=== PATIENT | female | born 1985 ===

== ENCOUNTER 2018-05-15 22:58 | Observation (INO) | payer OTHER ==
--- NOTE | 2018-05-15 23:48 | ED PDOC ---
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 Patient states when headache presents her left side of face, left arm, and left leg become "tingly", and notes her left palm starts to sweat. Patient states she has been taking Excedrin without improvement of headache. Patient notes intermittent dizziness. Patient reports syncopal episode prior to arrival tonight, after onset of headache. Denies fever, nausea/vomiting, photophobia, vision changes, neck pain, chest pain, shortness of breath, palpitations. NIHSS Stroke Scale - Date/Time Evaluation Performed Date Performed: 05/15/18 Time Performed: 23:25 - How Severe is the Stroke Level of Consciousness: 0=Alert LOC to Questions: 0=Both comments correct LOC to commands: 0=Obeys both correctly Best Gaze: 0=Normal Visual: 0=No visual loss Facial: 0=Normal Motor Arm - Left: 2=Falls before 10 sec Motor Arm - Right: 0=No drift Motor Leg - Left: 1=Drift before 5 sec Motor Leg - Right: 0=No drift Limb Ataxia: 0=Absent Sensory: 1=Mild to moderate loss Best Language: 0=No aphasia Dysarthia: 0=Normal articulation Extinction & Inattention (Neglect): 0=Normal, no object Score: 4 Past Medical History Reviewed: Historical Data, Nursing Documentation, Vital Signs Vital Signs: Last Vital Signs Temp 98.7 F 05/15/18 23:04 Pulse 71 05/15/18 23:04 Resp 16 05/15/18 23:04 BP 130/81 05/15/18 23:04 Pulse Ox 100 05/15/18 23:04 - Medical History PMH: No Chronic Diseases - Surgical History Other surgeries: tubal ligation - Family History Family History: States: No Known Family Hx - Social History Current smoker - smoking cessation education provided: No Alcohol: None Drugs: Denies - Home Medications Home Medications: Ambulatory Orders Medication Instructions Recorded No Known Home Med 05/16/18 - Allergies Allergies/Adverse Reactions: Allergies Allergy/AdvReac Type Severity Reaction Status Date / Time No Known Allergies Allergy Verified 05/15/18 23:04 Review of Systems ROS Statement: Except As Marked, All Systems Reviewed And Found Negative Neurological: Positive for: Numbness, Headache Physical Exam - Reviewed Nursing Documentation Reviewed: Yes Vital Signs Reviewed: Yes - Physical Exam Appears: Positive for: Well, Non-toxic, No Acute Distress Head Exam: Positive for: ATRAUMATIC, NORMAL INSPECTION, NORMOCEPHALIC Skin: Positive for: Normal Color Eye Exam: Positive for: Normal appearance ENT: Positive for: Normal ENT Inspection Cardiovascular/Chest: Positive for: Regular Rate, Rhythm Respiratory: Positive for: Normal Breath Sounds Gastrointestinal/Abdominal: Positive for: Normal Exam Back: Positive for: Normal Inspection Extremity: Positive for: Normal ROM Neurologic/Psych: Positive for: Alert, Oriented (x3), Motor/Sensory Deficits (decreased sensation left compared to right; 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 4/5 strength LUE, LLE). Negative for: Facial Droop - Laboratory Results Result Diagrams: 05/16/18 00:23 05/16/18 00:23 - ECG ECG: Positive for: Viewed By Me (reviewed by ED attending) ECG Rhythm: Positive for: Sinus Rhythm O2 Sat by Pulse Oximetry: 100 - Progress ED Course And Treament: -cbc -cmp -upreg -udip -CT head CT SCAN OF THE BRAIN WITHOUT IV CONTRAST CLINICAL INDICATION: Headache, left-sided numbness. TECHNIQUE: Axial and reformatted sagittal and coronal images of the brain obtained without IV contrast administration. Normal size of the ventricles and extra-axial spaces for the patient's age. Normal white matter tracts of the supratentorial brain. Normal basal ganglia and thalami. Normal brainstem. Normal cerebellum. There is no demonstrated extra-axial, intraparenchymal, or intraventricular hemorrhage. There are no findings of an acute ischemic infarction. Normal calvarium. There is no demonstrated fracture. Normal soft tissue structures. Normal visualized paranasal sinuses. IMPRESSION: Normal unenhanced CT scan of the brain. Case discussed with Dr. Gonzalez, Neurologist on-call, who feels presentation similar to that of an atypical migraine; recommends treatment for migraine symptoms and place in observation for MRI in am Case discussed with Dr. Rios, Hospitalist on-call, for placement in observation IV mag, IV solumedrol, IV benadryl ordered for headache with improvement of symptoms Disposition - Clinical Impression Clinical Impression: Atypical migraine - Disposition Disposition Time: 01:00 Condition: FAIR
[2018-05-16 00:52] LABS: BASO % 0.6 % (0.0-2.0); EOS # 0.2 K/uL (0.0-0.7); EOS % 2.3 % (0.0-4.0); HEMOGLOBIN 13.1 g/dL (12.0-16.0); LYMPH # 4.1 K/uL (1.0-4.3); LYMPH % 45.5 % (20.0-40.0); MEAN CELL VOLUME 89.7 fl (81.0-99.0); MEAN CORPUSCULAR HEMOGLOBIN 30.3 pg (27.0-31.0); MEAN CORPUSCULAR HGB CONC 33.8 g/dL (33.0-37.0); MEAN PLATELET VOLUME 8.6 fl (7.2-11.7); MONO # 0.7 K/uL (0.0-0.8); MONO % 8.2 % (0.0-10.0); NEUT # 3.9 K/uL (1.8-7.0); NEUT % 43.4 % (50.0-75.0); NRBC % 0.2 % (0.0-0.0); RBC 4.31 Mil/uL (3.80-5.20); RED CELL DISTRIBUTION WIDTH 13.1 % (11.5-14.5)
[2018-05-16] MEDS ORDERED: DiphenhydrAMINE 50 mg/ml Inj IV ONE (00:56)
[2018-05-16] MEDS ORDERED: Sodium Chloride 0.9% 1,000 ML IV STA (00:56)
[2018-05-16] MEDS ORDERED: Magnesium Sulfate 2 gm/50 ml 2 GM/50 ML BAG IVPB STA (00:56)
[2018-05-16 01:09] LABS: ALB/GLOB RATIO 1.1 (1.0-2.1); ALBUMIN 4.1 g/dL (3.5-5.0); ALT/SGPT 45 U/L (9-52); AST/SGOT 46 U/L (14-36); BLOOD UREA NITROGEN 12 mg/dl (7-17); GFR NON-AFRICAN AMERICAN > 60
[2018-05-16] MEDS ORDERED: Magnesium Sulfate 2 gm/50 ml 2 GM/50 ML BAG ONE (01:14)
[2018-05-16] MEDS ORDERED: DiphenhydrAMINE 50 mg/ml Inj ONE (01:14)
--- NOTE | 2018-05-16 06:40 | CP.PCM.HP ---
<Nestor Marc - Last Filed: 05/16/18 06:55> History of Present Illness - History of Present Illness History of Present Illness: 32 yo F with pmhx of migraine headaches presents with migraine Pt stated that 3 days prior, she experienced severe migraine on the L side with L sided tingling of her face, arm, leg. She took Excedrin, which didnt help her pain. She reports that she has experienced headaches or migraines every other week for at least 2 years. Prior to arrival, pt had an episode of weakness/presyncope where she felt weak. PMD: none surg: none soc: denies smoking, alcohol, illicit drugs FAm: mom had cva with L sided weakness, cad, dm, htn rx: excedrin, NKDA Present on Admission - Present on Admission Any Indicators Present on Admission: Yes History of DVT/PE: No History of Uncontrolled Diabetes: No Urinary Catheter: No Review of Systems - Constitutional Constitutional: Weakness - Cardiovascular Cardiovascular: absent: Chest Pain, Chest Pain at Rest - Respiratory Respiratory: absent: Cough, Dyspnea - Gastrointestinal Gastrointestinal: absent: Abdominal Pain - Neurological Neurological: Tingling Past Patient History - Past Medical History & Family History Past Medical History?: Yes - Past Social History Smoking Status: Never Smoked Alcohol: None Drugs: Denies Home Situation {Lives}: With Family - NEUROLOGICAL Hx Migraine: Yes - PSYCHIATRIC Hx Substance Use: No - SURGICAL HISTORY Hx Surgeries: Yes Hx Tubal Ligation: Yes - ANESTHESIA Hx Anesthesia: Yes Meds Allergies/Adverse Reactions: Allergies Allergy/AdvReac Type Severity Reaction Status Date / Time No Known Allergies Allergy Verified 05/15/18 23:04 Physical Exam - Constitutional Appears: In Acute Distress - Eye Exam Eye Exam: EOMI - Respiratory Exam Respiratory Exam: Clear to Auscultation Bilateral, NORMAL BREATHING PATTERN. absent: Wheezes - Cardiovascular Exam Cardiovascular Exam: REGULAR RHYTHM, +S1, +S2 - GI/Abdominal Exam GI & Abdominal Exam: Normal Bowel Sounds, Soft. absent: Tenderness - Neurological Exam Neurological exam: Alert, CN II-XII Intact, Oriented x3 - Psychiatric Exam Psychiatric exam: Normal Affect, Normal Mood Results - Vital Signs Recent Vital Signs: Last Vital Signs Temp 98.7 F 05/15/18 23:04 Pulse 71 05/15/18 23:04 Resp 16 05/15/18 23:04 BP 130/81 05/15/18 23:04 Pulse Ox 100 05/16/18 04:44 - Labs Result Diagrams: 05/16/18 00:23 05/16/18 00:23 Labs: Laboratory Results - last 24 hr 05/15/18 05/16/18 05/16/18 23:58 00:23 00:23 WBC 9.0 RBC 4.31 Hgb 13.1 Hct 38.6 MCV 89.7 MCH 30.3 MCHC 33.8 RDW 13.1 Plt Count 248 MPV 8.6 Neut % (Auto) 43.4 L Lymph % (Auto) 45.5 H [place] % (Auto) 8.2 Eos % (Auto) 2.3 Baso % (Auto) 0.6 Neut # (Auto) 3.9 Lymph # (Auto) 4.1 [place] # (Auto) 0.7 Eos # (Auto) 0.2 Baso # (Auto) 0.0 Sodium 140 Potassium 3.5 L Chloride 104 Carbon Dioxide 26 Anion Gap 14 BUN 12 Creatinine 0.7 Est GFR ( Amer) > 60 Est GFR (Non-Af Amer) > 60 POC Glucose (mg/dL) 121 H Random Glucose 113 H Calcium 9.0 Total Bilirubin 0.4 AST 46 H ALT 45 Alkaline Phosphatase 64 Total Protein 7.8 Albumin 4.1 Globulin 3.7 Albumin/Globulin Ratio 1.1 Assessment & Plan - Assessment and Plan (Free Text) Assessment: 32 yo F with pmhx of migraine headaches presents with migraine Plan: Atypical migraine CT head reviewed Neurolgy Dr. Gonzalez: recommends MRI in AM s/p: benadryl, mg sulfate, methylprednisone neurochecks f/u MRI Dizziness Meclezine DVT prophylaxis SCD Case dw Dr. Gabriel Marc MD [email or web address] <Estelita Rios - Last Filed: 05/16/18 07:01> Results - Vital Signs Recent Vital Signs: Last Vital Signs Temp 98.1 F 05/16/18 06:43 Pulse 66 05/16/18 06:43 Resp 18 05/16/18 06:43 BP 114/70 05/16/18 06:43 Pulse Ox 98 05/16/18 06:43 - Labs Result Diagrams: 05/16/18 00:23 05/16/18 00:23 Labs: Laboratory Results - last 24 hr 05/15/18 05/16/1819 23:58 00:23 00:23 WBC 9.0 RBC 4.31 Hgb 13.1 Hct 38.6 MCV 89.7 MCH 30.3 MCHC 33.8 RDW 13.1 Plt Count 248 MPV 8.6 Neut % (Auto) 43.4 L Lymph % (Auto) 45.5 H [place] % (Auto) 8.2 Eos % (Auto) 2.3 Baso % (Auto) 0.6 Neut # (Auto) 3.9 Lymph # (Auto) 4.1 [place] # (Auto) 0.7 Eos # (Auto) 0.2 Baso # (Auto) 0.0 Sodium 140 Potassium 3.5 L Chloride 104 Carbon Dioxide 26 Anion Gap 14 BUN 12 Creatinine 0.7 Est GFR ( Amer) > 60 Est GFR (Non-Af Amer) > 60 POC Glucose (mg/dL) 121 H Random Glucose 113 H Calcium 9.0 Total Bilirubin 0.4 AST 46 H ALT 45 Alkaline Phosphatase 64 Total Protein 7.8 Albumin 4.1 Globulin 3.7 Albumin/Globulin Ratio 1.1 Attending/Attestation - Attestation I have personally seen and examined this patient.: Yes I have fully participated in the care of the patient.: Yes I have reviewed all pertinent clinical information: Yes Notes (Text): 05/16/18 06:59 32 year old female known history of migraines presents with a 3 day history of left sided headache worsening today associated with 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 She received migraine cocktail, Neuro consulted in ED, likely complex migraines, and would like MRI in AM. HD stable, pain is currently controlled.
[2018-05-16] MEDS ORDERED: Apap-Butalbital-Caffeine 325-50-40mg Tab PO PRN (06:59)
[2018-05-16] MEDS ORDERED: Apap-Butalbital-Caffeine 325-50-40mg Tab ONE (07:06)
[2018-05-16] MEDS ORDERED: Gadodiamide 287 MG/ML VIAL (15ML) IV ONE (08:41)
--- NOTE | 2018-05-16 09:56 | CT ---
Date of service: 05/16/2018 PROCEDURE: CT HEAD WITHOUT CONTRAST. HISTORY: headache, left sided numbness COMPARISON: None available. TECHNIQUE: Axial computed tomography images were obtained through the head/brain without intravenous contrast. Radiation dose: Total exam DLP = 787.14 mGy-cm. This CT exam was performed using one or more of the following dose reduction techniques: Automated exposure control, adjustment of the mA and/or kV according to patient size, and/or use of iterative reconstruction technique. FINDINGS: HEMORRHAGE: No intracranial hemorrhage. BRAIN: Normal jacobo-white matter differentiation and density are appreciated throughout the cerebrum and cerebellum with the brainstem appearing unremarkable as well. There is no mass effect. There is no suspicious extra-axial fluid collection and the midline brain anatomy appears diffusely unremarkable. VENTRICLES: Unremarkable. No hydrocephalus. CALVARIUM: Unremarkable. PARANASAL SINUSES: Unremarkable as visualized. No significant inflammatory changes. MASTOID AIR CELLS: Unremarkable as visualized. No inflammatory changes. OTHER FINDINGS: None. IMPRESSION: Unremarkable unenhanced CT of the Head. Concordant preliminary report from Robin, 05/16/2018 12:44 a.m..
--- NOTE | 2018-05-16 14:25 | CARD ---
APPROVED REPORT Date of service: 05/16/2018 EKG Measurement Heart [id number] <Conclusion> Normal sinus rhythm with sinus arrhythmia Normal ECG
[2018-05-16 15:48] VITALS: BP 109/68; PULSE 77; RESP 18; TEMP 98.4; O2SAT 99
== END 2018-05-16 14:30 | disposition home or self-care (01) ==
LOC: H.ER 22:58 → H.ERHOLD 05-16 01:09
PROVIDERS: ADMIT Student in an Organized Health Care Education/Training Program; ATTEND Student in an Organized Health Care Education/Training Program
DX: G43.809 Other migraine, not intractable, without status migrainosus (principal); R20.2 Paresthesia of skin; Z82.3 Family history of stroke; Z82.49 Family history of ischemic heart disease and other diseases of the circulatory system
CPT/HCPCS: 70450; 80053; 81025; 82948; 85025; 93005; 96374; 99285; G0378; J1200; J2930; J7030

== ENCOUNTER 2018-05-27 00:12 | Emergency (ER) | payer OTHER ==
[2018-05-27 00:26] VITALS: O2SAT 99
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
[2018-05-27 04:35] VITALS: BP 109/75; PULSE 83; RESP 16; TEMP 98.4
== END 2018-05-27 04:42 | disposition home or self-care (01) ==
LOC: H.ER 00:12
DX: S00.83XA Contusion of other part of head, initial encounter (principal); Y04.0XXA Assault by unarmed brawl or fight, initial encounter; Y92.89 Other specified places as the place of occurrence of the external cause; F41.9 Anxiety disorder, unspecified